=== PATIENT | male | born 1990 | race African-American/Black ===

== ENCOUNTER 2020-09-12 08:23 | Emergency (ER) | payer OTHER ==
[~2020-09-12] VITALS: Ht 180.3 cm; Wt 108.9 kg
[2020-09-12 08:39] VITALS: BP 157/83
[2020-09-12] MEDS ORDERED: TETANUS-DIPTH-ACEL PERTUSSIS 0.5ML SYR Tdap IM ONE (11:30)
[2020-09-12] MEDS ORDERED: KETOROLAC TROMETH 60MG/2ML VIAL IM ONE (11:30)
== END 2020-09-12 12:21 | disposition home or self-care (01) ==
LOC: ER 08:23
DX: S61.112A Laceration without foreign body of left thumb with damage to nail, initial encounter (principal); W23.0XXA Caught, crushed, jammed, or pinched between moving objects, initial encounter; Y93.89 Activity, other specified; Y92.89 Other specified places as the place of occurrence of the external cause; Y99.8 Other external cause status
CPT/HCPCS: 12001; 73140; 90471; 90715; 96372; 99284; J1885

== ENCOUNTER 2020-09-25 09:31 | Emergency (ER) | payer MEDICAID, OTHER ==
[~2020-09-25] VITALS: Ht 180.3 cm; Wt 113.4 kg
[2020-09-25 11:25] VITALS: BP 138/95
== END 2020-09-25 12:46 | disposition home or self-care (01) ==
LOC: ER 09:31
DX: S61.012D Laceration without foreign body of left thumb without damage to nail, subsequent encounter (principal); X58.XXXD Exposure to other specified factors, subsequent encounter